=== PATIENT | female | born 1990 | race Two or more races ===

== ENCOUNTER 2022-08-18 21:54 | Emergency (ER) | payer MEDICAID, OTHER ==
[~2022-08-18] VITALS: Ht 165.1 cm; Wt 80.0 kg
[2022-08-18 23:15] VITALS: BP 108/78
== END 2022-08-19 00:48 | disposition home or self-care (01) ==
LOC: ER 21:54 → EDBD 21:54 → ER 08-19 00:30
DX: U07.1 COVID-19 (principal); R06.00 Dyspnea, unspecified
CPT/HCPCS: 71045; 93005